=== PATIENT | female | born 1970 | race Hispanic/Latino ===

== ENCOUNTER 2017-06-03 20:02 | Emergency (ER) | payer OTHER ==
[~2017-06-03] VITALS: Ht 165.1 cm; Wt 81.1 kg
[~2017-06-03 20:02] MED LIST: ADVAIR 500/501 DISK IH; ALLEGRA180 MG PO; ANTIVERT25 MG PO; CARAFATE1 GM PO; CIPRO500 MG PO; CITALOPRAM HBR20 MG PO; DULCOLAX5 MG PO; KEPPRA750 MG PO; OMEPRAZOLE20 M2 PO; PHENOBARBITAL32.4 MG PO; TYLENOL WITH C1 EACH PO; VENTOLIN17 GM IH; ZANTAC150 MG PO; ZITHROMAX250 MG PO; ZOFRAN4 MG PO; ZYRTEC10 M2 PO
[2017-06-03] MEDS ORDERED: ROBAXIN750 MG PO (22:06)
[2017-06-03 22:08] VITALS: BP 118/79
== END 2017-06-03 22:11 | disposition home or self-care (01) ==
LOC: EME 20:02
PROC: 0HQ6XZZ Repair Back Skin, External Approach (ICD-10-PCS; principal; 2017-06-03)
DX: S21.219A Laceration without foreign body of unspecified back wall of thorax without penetration into thoracic cavity, initial encounter (principal); J44.9 Chronic obstructive pulmonary disease, unspecified; Z85.3 Personal history of malignant neoplasm of breast; G43.909 Migraine, unspecified, not intractable, without status migrainosus; Z90.710 Acquired absence of both cervix and uterus; Z88.5 Allergy status to narcotic agent; Z88.0 Allergy status to penicillin
CPT/HCPCS: 99281; 99284; S0020

== ENCOUNTER 2017-08-11 12:32 | Emergency (ER) | payer OTHER ==
[~2017-08-11] VITALS: Ht 165.1 cm; Wt 78.6 kg
[~2017-08-11 12:32] MED LIST changes: +ROBAXIN750 MG PO
[2017-08-11 12:52] LABS: HEMATOCRIT 42.2 % (36.0-46.0); HEMOGLOBIN 14.2 G/DL (11.9-15.5); MCHC 33.6 G/DL (30.0-36.0); MCV 92.1 FL (83-99); PLATELET COUNT 247 K/uL (156-360); RBC DIS.WIDTH-CV 12.1 % (11.8-14.6); RBC DIS.WIDTH-SD 41.4 % (39-53); RED BLOOD COUNT 4.58 M/uL (3.80-5.20); WHITE BLOOD COUNT 7.3 K/uL (4.1-10.2)
[2017-08-11 12:57] LABS: APPEARANCE CLOUDY ((CLEAR)); BILIRUBIN NEGATIVE; BLOOD SMALL; COLOR YELLOW ((YELLOW)); GLUCOSE (STRIP) NEGATIVE; KETONES NEGATIVE; LEUKOCYTES NEGATIVE; NITRITE NEGATIVE; PROTEIN (STRIP) 30; SPECIFIC GRAVITY 1.026 (1.000-1.030); UROBILINOGEN 0.2 MG/DL (0.2-1.0)
[2017-08-11 13:01] LABS: BACTERIA RARE /HPF; CALCIUM OXALATE CRYSTALS 1+ /HPF; EPITHELIAL CELLS 2+ /HPF; MUCUS TRACE /LPF; RED BLOOD CELLS 0-5 /HPF (0-5); UCUL ADDED? NO; WHITE BLOOD CELLS 0-5 /HPF (0-5)
[2017-08-11 13:04] LABS: CHLORIDE 107 mEq/L (99-109); POTASSIUM 4.4 mEq/L (3.7-5.4); SODIUM 137 mEq/L (136-147)
[2017-08-11 13:06] LABS: GLUCOSE 93 mg/dL (70-99); TOTAL PROTEIN 7.8 g/dL (6.4-8.3)
[2017-08-11 13:08] LABS: TOTAL BILIRUBIN 0.3 mg/dL (0.0-1.0)
[2017-08-11 13:09] LABS: ALKALINE PHOSPHATASE 88 IU/L (3-129)
[2017-08-11 13:10] LABS: CREATININE 0.7 mg/dL (0.6-1.3); GFR ESTIMATE (CALCULATED) > 59 mL/min/
[2017-08-11 13:11] LABS: AST (GOT) 18 IU/L (2-34); UREA NITROGEN (BUN) 13 mg/dL (9-23)
[2017-08-11 13:12] LABS: ALT (GPT) 20 IU/L (3-49)
[2017-08-11 13:13] LABS: LIPASE 17 U/L (1.0-51.0)
[2017-08-11 14:04] LABS: QUANTITATIVE HCG < 4.0 MIU/ML
[2017-08-11] MEDS ORDERED: ZOFRAN ODT4 MG PO (15:43)
[2017-08-11] MEDS ORDERED: LEVSIN-SL0.125 MG SL (15:43)
[2017-08-11] MEDS ORDERED: CIPRO500 MG PO (15:43)
[2017-08-11 16:18] VITALS: BP 107/70
[2017-08-11 16:26] LABS: C DIFF TOXIN NEGATIVE (NEGATIVE)
== END 2017-08-11 16:20 | disposition home or self-care (01) ==
LOC: EME 12:32
PROVIDERS: Nurse Practitioner Family
DX: R19.7 Diarrhea, unspecified (principal); E86.0 Dehydration; R11.2 Nausea with vomiting, unspecified; J44.9 Chronic obstructive pulmonary disease, unspecified; Z85.3 Personal history of malignant neoplasm of breast; Z88.0 Allergy status to penicillin; Z92.21 Personal history of antineoplastic chemotherapy
CPT/HCPCS: 80053; 81003; 83690; 84702; 85027; 87177; 87493; 87506; 99281; 99284; J2405; J7030